=== PATIENT | male | born 1960 | race Hispanic/Latino ===

== ENCOUNTER 2019-04-26 15:24 | Outpatient (CLI) | payer OTHER ==
[~2019-04-26 15:24] MED LIST: Iopamidol-370 76% 500 ML 1 ML ONE
--- NOTE | 2019-04-26 17:02 | CT ---
CT ABDOMEN AND PELVIS WITH AND WITHOUT IV CONTRAST: 04/26/19 HISTORY: Gross hematuria and fecal material micturition. FINDINGS: There are dependent changes in the lung bases. No calcified gallstones are seen. No free air, free fl uid or lymphadenopathy is noted in the abdomen or pelvis. The liver, spleen, pancreas, and adrenal glands are normal. The small bowel loops are not abnormally dilated. A normal appearing appendix is present. No calculi are seen in the kidneys, ureters or the urinary bladder. Postcontrast images demonstrate no evidence of renal mass. There is normal contrast excretion by the kidneys into the pelvicalyceal s ystems, ureters, and urinary bladder. There is no evidence of aneurysmal dilatation of the abdominal aorta. There are mild degenerative changes in the spine. No osteolytic or osteoblastic lesions are se en. IMPRESSION: No CT evidence of urinary tract calculi/obstruction or renal mass. POS: JODIE
== END 2019-04-26 15:25 | disposition home or self-care (01) ==
LOC: BICCT 15:24
PROVIDERS: ATTEND Urology
DX: R31.0 Gross hematuria (principal); R35.0 Frequency of micturition
CPT/HCPCS: 74178; Q9967

== ENCOUNTER 2019-07-24 13:27 | Outpatient (CLI) | payer OTHER ==
--- NOTE | 2019-07-24 14:34 | ULT ---
EXAM: Testicular/scrotal ultrasound HISTORY: Spermatocele COMPARISON: None TECHNIQUE: Multiplanar grayscale and color Doppler images were obtained in a testicular/scrotal ultra sound. Spectral analysis of the Doppler waveforms of the testicles were performed. FINDINGS: Right testicle: Normal in echogenicity. No focal mass. Normal internal flow. Left testicle: Normal in echogenicity. No focal mass. Normal internal flow. Right epididymis. No epididymal cyst. Normal internal flow. Left epididymis. No epididymal cyst. Normal internal flow. Small right hydrocele is present. Mild left varicocele is present. IMPRESSION: 1. Small right hydrocele 2. Small left varicocele
== END 2019-07-24 13:28 | disposition home or self-care (01) ==
LOC: BICULT 13:27
PROVIDERS: ATTEND Urology
DX: N43.40 Spermatocele of epididymis, unspecified (principal); L72.9 Follicular cyst of the skin and subcutaneous tissue, unspecified; N43.3 Hydrocele, unspecified; I86.1 Scrotal varices
CPT/HCPCS: 76870; 93976

== ENCOUNTER 2021-06-06 00:26 | Emergency (ER) | payer OTHER, SELFPAY ==
[2021-06-06] MEDS ORDERED: Ondansetron PF 4 MG/2 ML Vial ONE (06:40)
[2021-06-06] MEDS ORDERED: Boostrix 0.5 ML (Tdap) VIAL ONE (06:56)
== END 2021-06-06 09:00 | disposition home or self-care (01) ==
LOC: ERS 00:26
DX: S01.01XA Laceration without foreign body of scalp, initial encounter (principal); F10.129 Alcohol abuse with intoxication, unspecified; W19.XXXA Unspecified fall, initial encounter
CPT/HCPCS: 12001; 70450; 72125; 90471; 90715; 96374; J2405

== ENCOUNTER 2025-05-02 10:55 | Outpatient (CLI) | payer MEDICARE | END 2025-05-02 10:56 | disposition home or self-care (01) | LOC: BICRAD 10:55 | PROVIDERS: ATTEND Family Medicine | DX: M25.512 Pain in left shoulder (principal); M25.561 Pain in right knee; G89.29 Other chronic pain; R53.82 Chronic fatigue, unspecified; R06.02 Shortness of breath; M19.012 Primary osteoarthritis, left shoulder; M17.11 Unilateral primary osteoarthritis, right knee | CPT/HCPCS: 71046 ==